=== PATIENT | male | born 1970 | race Two or more races ===

== ENCOUNTER 2024-10-18 09:16 | Outpatient (RCR) | payer MEDICAID, SELFPAY ==
--- NOTE | 2024-10-18 09:44 | PTNOTE_ITS ---
PT OP Initial Eval Patient Information Outpatient Physical Therapy Treatment Date: 10/18/24 Visit Reasons: BACK PAIN Medical Diagnosis: M51.16 Treatment Dx #1: Back Pain Treatment Dx #2: L/S Mobility Deficits Start of Care: 10/18/24 Date of Onset: 1 year ago Smoking Status Smoking Status: Never smoker Initial Assessment Subjective: Pt is a 54 y/o male reports of chronic back pain (05/09) with intermittent pain down the leg R>L. Pt's most recent MRI showed multiple disc protrusion. Pt also seeing pain management and has consulted with a neurosurgeon. Pt has difficulty with sitting, standing, chores, self care, cooking, cleaning, work duties, and recreational activities. Objective: L/S AROM: all motions are 75% towards end range with pain Hip PROM: all motions are WFL Hip MMTs: grossly 3+/5 Special Test (+) SLR (+) slump Assessment: Pt demonstrate back pain with mobility deficits consistent with MRI findings leading to difficulty with ADLs. Pt will attempt physical therapy if pain persist Pt will be refer back to provider for further consultation. Short Term and Correction Goals 1) Increase L/S AROM WNL in 6 wks to be able to perform chores 2) Decrease back pain to 4/10 in 6 wks to be able to sit or stand more than 30 mins 3) Increase core strength WFL in 6 wks to be able to perform recreational activities 4) Increase hip MMTs grossly to 4-/5 in 6 wks to be able to walk more than 30 mins 5) Indep with HEP Treatment Plan 1) Manual Therapy 2) Therapeutic Activities 3) Therapeutic Exercises 4) Modalities (ice, heat, traction) Frequency and Duration: 2 x wk for 6 wks Certification Dates: 10/18/24 to 01/18/25 Procedure Charges OP PT Eval Mod Complex 30 minutes: Yes
== END 2024-10-28 23:59 | disposition home or self-care (01) ==
LOC: CPTX 09:16
PROVIDERS: PCP Nurse Practitioner Family; Referring Provider Nurse Practitioner Family; Visit Provider Nurse Practitioner Family
DX: M51.16 Intervertebral disc disorders with radiculopathy, lumbar region (principal); G89.29 Other chronic pain
CPT/HCPCS: 97162

== ENCOUNTER 2024-10-30 10:41 | Outpatient (RCR) | payer MEDICAID, SELFPAY ==
--- NOTE | 2024-10-30 11:42 | PTNOTE_ITS ---
PT Outpatient Daily Note OP Daily Note Outpatient Physical Therapy Treatment Date: 10/30/24 Visit Reasons: Low back pain Subjective: Pt c/o mild LBP. Pt shared that he tries to stay active, pt does exercises and home and carries ~10 lb weights bending forward into lumbar flexion with weights and uses a Yasmany Chair to do back flexion/extension. Objective: Please see flow sheet for ther ex list. Assessment: Pt educated on avoiding repeated flexion or loading spine with weights to avoid aggravating symptoms due to pt current lumbar diagnosis, pt agreed. Pt instr ucted on interventions with maintaining spine in neutral and perform lumbar extension, pt replicated with good technique. Plan: Continue with POC. Length of Time (minutes) of Treatment: 30 Minutes Procedure Charges Therapeutic Exercise 30 minutes: Yes
--- NOTE | 2024-11-20 14:00 | PT.ODS1RPT ---
PT OP Progress/Discharge Note Date of Service: 11/20/24 Progress Note/DC Note Progress Note/Discharge Note: DC Note Patient Information Visit Reasons: Low back pain Service Discharge Date: 11/20/24 Status Assessment: Pt has been seen for 2 visits (eval + 1 visit). Pt last treated on 10/30/24 and no showed 11/06/24 appt. Pt has been contact regarding follow up appts without success. At this time Pt will be d/c from care due to non-compliance per attendance policy. Pt did not meet set goals in therapy; thank you for your referrals.
== END 2024-11-27 23:59 | disposition home or self-care (01) ==
LOC: CPTX 10:41
PROVIDERS: PCP Nurse Practitioner Family; Referring Provider Nurse Practitioner Family; Visit Provider Nurse Practitioner Family
DX: M51.16 Intervertebral disc disorders with radiculopathy, lumbar region (principal)
CPT/HCPCS: 97110